=== PATIENT | male | born 1955 | race Caucasian/White ===

== ENCOUNTER 2018-04-01 07:51 | Inpatient (IN) | payer MEDICARE, BC ==
[~2018-04-01] VITALS: Ht 193 cm; Wt 106.5 kg
[~2018-04-01 07:51] MED LIST: ALPR0.25 PO; ANTIDEPRESSANT; DEXL60CA2 PO; FURO-93 PO; GABA300C10 PO; LIDO20VI RC; OMEP-110 PO; OXYC5CAP2 PO; PANT40TA5 PO; POLY17PO5 PO; PROP20TA PO; SPIR100T PO
[2018-04-01] MEDS ORDERED: TOPI25CA5 PO (08:16)
[2018-04-01] MEDS ORDERED: SODIUM CHLORIDE FLUSH 10ML SYR IVF ONE (09:00)
[2018-04-01] MEDS ORDERED: METRONIDAZOLE PMX 500MG/100ML 100 ML IV ONE (09:00)
[2018-04-01] MEDS ORDERED: AMPICILLIN/SULBACTAM 3 GM in SODIUM CHLORIDE 0.9% 100 ML IV ONE (09:00)
[2018-04-01] MEDS ORDERED: ONDANSETRON 2MG/ML, 2ML IVPush ONE (09:00)
[2018-04-01] MEDS ORDERED: ONDANSETRON 2MG/ML, 2ML ONE ×2 (09:07→16:53)
[2018-04-01] MEDS ORDERED: MORPHINE SULFATE 4 MG/ML, 1ML ONE ×2 (09:07→10:16)
[2018-04-01] MEDS ORDERED: METRONIDAZOLE PMX 500MG/100ML 100 ML ONE (09:07)
[2018-04-01] MEDS: MORPHINE SULFATE 4 MG/ML, 1ML IVPush PRN ×3 (09:18→20:37)
[2018-04-01 09:31] LABS: ALBUMIN 3.7 g/dL (3.4-5.0); ANION GAP 10 mmol/L (5-15); CALCIUM 8.1 mg/dL (8.5-10.1); CHLORIDE 109 mmol/L (98-107)
[2018-04-01 09:38] LABS: BASOPHILS # (AUTO) 0.01 x10^3/uL (0-0.1); BASOPHILS % (AUTO) 0 % (0-1); EOSINOPHILS # (AUTO) 0.07 x10^3/uL (0-0.4); EOSINOPHILS % (AUTO) 1 % (1-7); LYMPHOCYTES # (AUTO) 0.89 x10^3/uL (1-3.4); LYMPHOCYTES % (AUTO) 14 % (22-44); MD SCAN; MEAN CORPUSCULAR HEMOGLOBIN 28.9 pg (27.5-34.5); MEAN CORPUSCULAR HGB CONC 33.1 g/dL (33.2-36.2); MEAN CORPUSCULAR VOLUME 87.2 fL (81-97); MEAN PLATELET VOLUME 12.1 fL (7.4-10.4); MONOCYTES # (AUTO) 1.17 x10^3/uL (0.2-0.8); MONOCYTES % (AUTO) 18 % (2-9); NEUTROPHILS # (AUTO) 4.41 x10^3/uL (1.8-6.8); NEUTROPHILS % (AUTO) 67 % (42-75); PLATELET COUNT 91 x10^3/uL (130-400); RED BLOOD COUNT 5.27 x10^6/uL (4.38-5.82); RED CELL DISTRIBUTION WIDTH 16.8 % (9.4-14.8)
[2018-04-01 10:25] LABS: ALANINE AMINOTRANSFERASE 41 U/L (12-78); ALKALINE PHOSPHATASE 161 U/L (45-117); BILIRUBIN,TOTAL 0.8 mg/dL (0.2-1.0); CREATININE 1.04 mg/dL (0.7-1.3); TOTAL PROTEIN 7.8 g/dL (6.4-8.2)
[2018-04-01] MEDS ORDERED: POLYETHYLENE GLYCOL 17 GM PACKET PO PRN (10:30)
[2018-04-01] MEDS ORDERED: BISACODYL 10 MG SUPP PR PRN (10:30)
[2018-04-01] MEDS ORDERED: DOCUSATE 100 MG CAPSULE PO PRN (10:30)
[2018-04-01] MEDS ORDERED: KETOROLAC 30 MG/1 ML IV PRN (10:30)
[2018-04-01] MEDS ORDERED: hydrALAzine 20 MG/ML, 1ML IVPush PRN (10:30)
[2018-04-01] MEDS ORDERED: ONDANSETRON 2MG/ML, 2ML IVPush PRN (10:30)
[2018-04-01] MEDS ORDERED: OMNIPAQUE 350 MG/ML, 100ML BOTTLE ONE (11:10)
[2018-04-01] MEDS: NS + 20MEQ KCL 1,000 ML IV SCH (12:51)
[2018-04-01 12:53] VITALS: BP 144/93
[2018-04-01] MEDS ORDERED: BUPIVACAINE/PF 0.5% ONE (16:00)
[2018-04-01] MEDS ORDERED: EPINEPHRINE 1 MG/ML, 1ML ONE (16:00)
[2018-04-01] MEDS ORDERED: FENTANYL PF 100 MCG/2ML ONE ×2 (16:49→17:51)
[2018-04-01] MEDS ORDERED: MIDAZOLAM 1 MG/ML, 2ML ONE (16:49)
[2018-04-01] MEDS ORDERED: NEOSTIGMINE 1 MG/ML, 10ML ONE (16:53)
[2018-04-01] MEDS ORDERED: CEFAZOLIN 1,000 MG ONE (16:53)
[2018-04-01] MEDS ORDERED: DEXAMETHASONE 4 MG/ML, 1ML ONE (16:53)
[2018-04-01] MEDS ORDERED: SUCCINYLCHOLINE 20 MG/ML, 10ML ONE (16:53)
[2018-04-01] MEDS ORDERED: PROPOFOL 10 MG/ML, 20ML ONE (16:53)
[2018-04-01] MEDS ORDERED: ROCURONIUM 10MG/ML,5ML ONE (16:53)
[2018-04-01] MEDS ORDERED: GLYCOPYRROLATE 0.2MG/1ML, 5ML ONE (16:53)
[2018-04-01] MEDS ORDERED: OXYcodone 5 MG/5 ML ORAL.SOL UDC PO PRN (17:30)
[2018-04-01] MEDS ORDERED: DIAZEPAM 5 MG/ML, 2ML IVPush PRN (17:30)
[2018-04-01] MEDS ORDERED: ONDANSETRON 2MG/ML, 2ML IV PRN (17:30)
[2018-04-01] MEDS ORDERED: ONDANSETRON ODT 8 MG PO PRN (17:30)
[2018-04-01] MEDS ORDERED: MEPERIDINE/PF 25MG/0.5ML IVPush PRN (17:30)
[2018-04-01] MEDS ORDERED: MORPHINE SULFATE 4 MG/ML, 1ML IVPush PRN (17:30)
[2018-04-01] MEDS ORDERED: OXYcodone 5 MG/5 ML ORAL.SOL UDC ONE (17:52)
[2018-04-01] MEDS: FENTANYL PF 100 MCG/2ML IV PRN ×2 (17:54→18:13)
[2018-04-01] MEDS ORDERED: MEPERIDINE/PF 50 MG/ML ONE (17:55)
[2018-04-01] MEDS ORDERED: OMEP40CA6 PO (18:03)
[2018-04-01 18:46] VITALS: BP 120/78
[2018-04-02] MEDS: AMPICILLIN/SULBACTAM 3 GM in SODIUM CHLORIDE 0.9% 100 ML IV SCH ×4 (00:06→23:43)
[2018-04-02] MEDS: MORPHINE SULFATE 4 MG/ML, 1ML IVPush PRN ×5 (00:38→21:15)
[2018-04-02] MEDS: METRONIDAZOLE PMX 500MG/100ML 100 ML IV SCH ×4 (00:38→18:33)
[2018-04-02 01:12] VITALS: BP 109/72
[2018-04-02] MEDS: NS + 20MEQ KCL 1,000 ML IV SCH ×2 (05:45→16:05)
[2018-04-02 06:02] LABS: MEAN CORPUSCULAR HEMOGLOBIN 29.4 pg (27.5-34.5); MEAN CORPUSCULAR HGB CONC 33.4 g/dL (33.2-36.2); MEAN CORPUSCULAR VOLUME 88.2 fL (81-97); MEAN PLATELET VOLUME 11.4 fL (7.4-10.4); PLATELET COUNT 87 x10^3/uL (130-400); RED BLOOD COUNT 4.63 x10^6/uL (4.38-5.82)
[2018-04-02 06:11] LABS: CHLORIDE 111 mmol/L (98-107)
[2018-04-02 06:23] LABS: ANION GAP 10 mmol/L (5-15); CREATININE 0.76 mg/dL (0.7-1.3)
[2018-04-02 06:43] LABS: ANISOCYTOSIS 1+; BASOPHILS # (AUTO) 0.02 x10^3/uL (0-0.1); BASOPHILS % (AUTO) 0 % (0-1); EOSINOPHILS # (AUTO) 0.14 x10^3/uL (0-0.4); EOSINOPHILS % (AUTO) 2 % (1-7); LYMPHOCYTES # (AUTO) 1.07 x10^3/uL (1-3.4); LYMPHOCYTES % (AUTO) 17 % (22-44); MD MORPH REVIEW ONLY; MONOCYTES # (AUTO) 1.08 x10^3/uL (0.2-0.8); MONOCYTES % (AUTO) 17 % (2-9); NEUTROPHILS # (AUTO) 3.95 x10^3/uL (1.8-6.8); NEUTROPHILS % (AUTO) 63 % (42-75); POLYCHROMASIA 1+
[2018-04-02 06:44] LABS: <PLATELET ESTIMATE> DECREASED; LARGE PLATELETS 1+
[2018-04-02 08:12] VITALS: BP 123/87
[2018-04-02] MEDS ORDERED: VANCOMYCIN PER PHARMACY MC PRN (09:00)
[2018-04-02] MEDS ORDERED: TOPIRAMATE 25 MG TABLET PO SCH (09:00)
[2018-04-02] MEDS ORDERED: PHARMACOKINETIC MONITORING MC PRN (09:30)
[2018-04-02] MEDS ORDERED: VANCOMYCIN 1,900 MG in SODIUM CHLORIDE 0.9% 250 ML IV SCH (10:00)
[2018-04-02 12:49] VITALS: BP 121/84
[2018-04-02 19:09] LABS: CLOSTRIDIUM DIFFICILE ANTIGEN NEGATIVE; CLOSTRIDIUM DIFFICILE TOXIN NEGATIVE (Negative)
[2018-04-02 19:13] VITALS: BP 133/78
[2018-04-02] MEDS ORDERED: VANCOMYCIN 2,000 MG in SODIUM CHLORIDE 0.9% 500 ML IV SCH (21:00)
[2018-04-03] MEDS: METRONIDAZOLE PMX 500MG/100ML 100 ML IV SCH ×2 (00:20→05:12)
[2018-04-03] MEDS: NS + 20MEQ KCL 1,000 ML IV SCH (02:00)
[2018-04-03 02:05] VITALS: BP 113/68
[2018-04-03] MEDS: MORPHINE SULFATE 4 MG/ML, 1ML IVPush PRN ×2 (04:03→10:42)
[2018-04-03 05:01] LABS: MEAN CORPUSCULAR HEMOGLOBIN 29.2 pg (27.5-34.5); MEAN CORPUSCULAR HGB CONC 33.4 g/dL (33.2-36.2); MEAN CORPUSCULAR VOLUME 87.6 fL (81-97); RED CELL DISTRIBUTION WIDTH 16.6 % (9.4-14.8)
[2018-04-03 05:13] LABS: ANION GAP 10 mmol/L (5-15); CALCIUM 7.7 mg/dL (8.5-10.1); CHLORIDE 113 mmol/L (98-107); CREATININE 0.66 mg/dL (0.7-1.3)
[2018-04-03 05:20] LABS: BASOPHILS # (AUTO) 0.01 x10^3/uL (0-0.1); BASOPHILS % (AUTO) 0 % (0-1); EOSINOPHILS # (AUTO) 0.13 x10^3/uL (0-0.4); EOSINOPHILS % (AUTO) 4 % (1-7); LYMPHOCYTES # (AUTO) 0.73 x10^3/uL (1-3.4); LYMPHOCYTES % (AUTO) 20 % (22-44); MD SCAN; MEAN PLATELET VOLUME 11.8 fL (7.4-10.4); MONOCYTES # (AUTO) 0.56 x10^3/uL (0.2-0.8); MONOCYTES % (AUTO) 15 % (2-9); NEUTROPHILS # (AUTO) 2.28 x10^3/uL (1.8-6.8); NEUTROPHILS % (AUTO) 62 % (42-75); PLATELET COUNT 73 x10^3/uL (130-400)
[2018-04-03 07:48] VITALS: BP 120/77
[2018-04-03] MEDS: AMPICILLIN/SULBACTAM 3 GM in SODIUM CHLORIDE 0.9% 100 ML IV SCH (08:24)
[2018-04-03] MEDS: CEPHALEXIN 500 MG CAPSULE PO SCH ×2 (10:42→16:28)
[2018-04-03 12:17] VITALS: BP 146/86
[2018-04-03] MEDS ORDERED: MORPHINE SULFATE 4 MG/ML, 1ML IVPush PRN (16:30)
[2018-04-03] MEDS ORDERED: SULF1TAB24 PO (16:50)
[2018-04-03] MEDS ORDERED: HYDR-3652 PO (16:50)
== END 2018-04-03 17:45 | disposition home or self-care (01) | DRG 330 ==
LOC: ED 09:33 → EDIP 10:02 → 4WST 11:35
PROVIDERS: ADMIT Hospitalist; ATTEND Hospitalist
PROC: 0DQP0ZZ Repair Rectum, Open Approach (ICD-10-PCS; 2018-04-01)
PROC: 0D9P0ZZ Drainage of Rectum, Open Approach (ICD-10-PCS; principal; 2018-04-01 17:00)
DX: K60.5 Anorectal fistula (principal); L02.31 Cutaneous abscess of buttock; L03.317 Cellulitis of buttock; D69.6 Thrombocytopenia, unspecified; E87.6 Hypokalemia; Z66 Do not resuscitate; K21.9 Gastro-esophageal reflux disease without esophagitis; K40.90 Unilateral inguinal hernia, without obstruction or gangrene, not specified as recurrent; F41.9 Anxiety disorder, unspecified; Z79.899 Other long term (current) drug therapy
CPT/HCPCS: 36415; 74177; 80048; 80053; 83605; 85025; 87040; 87046; 87070; 87075; 87077; 87186; 87205; 87324; 87427; 89055; 93005; 96365; 96375; 99285; G0378; J0171; J0295; J0690; J1100; J1885; J2175; J2250; J2405; J2704; J2710; J3010; J3370; J3480; J3490; Q9967; J0330; J7040; J7050

== ENCOUNTER → 2018-04-06 | Outpatient (CLI) | payer BC, MEDICARE ==
[~2018-04-06] MED LIST changes: +HYDR-3652 PO; +OMEP40CA6 PO; +SULF1TAB24 PO; +TOPI25CA5 PO
== END | disposition home or self-care (01) ==
LOC: WOUND 12:58
PROVIDERS: ATTEND Family Medicine
DX: T81.31XA Disruption of external operation (surgical) wound, not elsewhere classified, initial encounter (principal); K60.3 Anal fistula; B18.2 Chronic viral hepatitis C; F31.9 Bipolar disorder, unspecified; F41.9 Anxiety disorder, unspecified; K21.9 Gastro-esophageal reflux disease without esophagitis; Y83.8 Other surgical procedures as the cause of abnormal reaction of the patient, or of later complication, without mention of misadventure at the time of the procedure; Y92.89 Other specified places as the place of occurrence of the external cause
CPT/HCPCS: 99215

== ENCOUNTER → 2018-04-13 | Outpatient (CLI) | payer BC, MEDICARE | END | disposition home or self-care (01) | LOC: WOUND 13:05 | PROVIDERS: ATTEND Family Medicine | DX: T81.89XD Other complications of procedures, not elsewhere classified, subsequent encounter (principal); K60.3 Anal fistula; B18.2 Chronic viral hepatitis C; F41.9 Anxiety disorder, unspecified; F31.9 Bipolar disorder, unspecified; K21.9 Gastro-esophageal reflux disease without esophagitis; Z79.899 Other long term (current) drug therapy; Y83.8 Other surgical procedures as the cause of abnormal reaction of the patient, or of later complication, without mention of misadventure at the time of the procedure | CPT/HCPCS: G0463 ==

== ENCOUNTER → 2018-04-27 | Outpatient (CLI) | payer BC, MEDICARE, OTHER | END | disposition home or self-care (01) | LOC: WOUND 10:44 | PROVIDERS: ATTEND Family Medicine | DX: T81.89XD Other complications of procedures, not elsewhere classified, subsequent encounter (principal); K60.3 Anal fistula; B18.2 Chronic viral hepatitis C; F31.9 Bipolar disorder, unspecified; F41.9 Anxiety disorder, unspecified; K21.9 Gastro-esophageal reflux disease without esophagitis; Z79.899 Other long term (current) drug therapy; Y83.8 Other surgical procedures as the cause of abnormal reaction of the patient, or of later complication, without mention of misadventure at the time of the procedure | CPT/HCPCS: 99214 ==

== ENCOUNTER → 2018-05-11 | Outpatient (CLI) | payer BC, MEDICARE | END | disposition home or self-care (01) | LOC: WOUND 08:08 | PROVIDERS: ATTEND Family Medicine | DX: T81.89XD Other complications of procedures, not elsewhere classified, subsequent encounter (principal); S30.813A Abrasion of scrotum and testes, initial encounter; K60.3 Anal fistula; B18.2 Chronic viral hepatitis C; F41.9 Anxiety disorder, unspecified; F31.9 Bipolar disorder, unspecified; K21.9 Gastro-esophageal reflux disease without esophagitis; Z79.899 Other long term (current) drug therapy; Y83.8 Other surgical procedures as the cause of abnormal reaction of the patient, or of later complication, without mention of misadventure at the time of the procedure; X58.XXXA Exposure to other specified factors, initial encounter; Y93.89 Activity, other specified; Y92.89 Other specified places as the place of occurrence of the external cause; Y99.8 Other external cause status | CPT/HCPCS: 99214 ==

== ENCOUNTER → 2018-06-08 | Outpatient (CLI) | payer MEDICARE, BC | END | disposition home or self-care (01) | LOC: WOUND 14:24 | PROVIDERS: ATTEND Family Medicine | DX: S30.813A Abrasion of scrotum and testes, initial encounter (principal); K60.3 Anal fistula; B18.2 Chronic viral hepatitis C; F31.9 Bipolar disorder, unspecified; F41.9 Anxiety disorder, unspecified; K21.9 Gastro-esophageal reflux disease without esophagitis; X58.XXXA Exposure to other specified factors, initial encounter; Y93.89 Activity, other specified; Y92.89 Other specified places as the place of occurrence of the external cause; Y99.8 Other external cause status | CPT/HCPCS: G0463 ==

== ENCOUNTER 2018-06-22 14:00 | Outpatient (CLI) | payer BC, MEDICARE ==
[~2018-06-22 14:00] MED LIST changes: +LIDOCAINE 1%, 20ML ONE
== END 2018-06-22 23:59 | disposition home or self-care (01) ==
LOC: RAD 14:00
PROVIDERS: ATTEND Surgery
DX: C77.0 Secondary and unspecified malignant neoplasm of lymph nodes of head, face and neck (principal)
CPT/HCPCS: 38505; 76942; 88305; 88341; 88342; J3490

== ENCOUNTER → 2018-06-22 | Outpatient (CLI) | payer BC, MEDICARE | END | disposition home or self-care (01) | LOC: WOUND 14:37 | PROVIDERS: ATTEND Family Medicine | DX: S30.813D Abrasion of scrotum and testes, subsequent encounter (principal); K60.3 Anal fistula; B18.2 Chronic viral hepatitis C; F31.9 Bipolar disorder, unspecified; F41.9 Anxiety disorder, unspecified; K21.9 Gastro-esophageal reflux disease without esophagitis; Z86.19 Personal history of other infectious and parasitic diseases; X58.XXXD Exposure to other specified factors, subsequent encounter | CPT/HCPCS: 99213 ==

== ENCOUNTER 2018-06-29 13:17 | Outpatient (CLI) | payer BC, MEDICARE ==
[~2018-06-29 13:17] MED LIST changes: -LIDOCAINE 1%, 20ML ONE
== END 2018-06-29 23:59 | disposition home or self-care (01) ==
LOC: WOUND 13:17
PROVIDERS: ATTEND Family Medicine
DX: S30.813D Abrasion of scrotum and testes, subsequent encounter (principal); K60.3 Anal fistula; B18.2 Chronic viral hepatitis C; F31.9 Bipolar disorder, unspecified; F41.9 Anxiety disorder, unspecified; K21.9 Gastro-esophageal reflux disease without esophagitis; X58.XXXD Exposure to other specified factors, subsequent encounter
CPT/HCPCS: 99213

== ENCOUNTER → 2018-07-06 | Outpatient (CLI) | payer BC, MEDICARE | END | disposition home or self-care (01) | LOC: WOUND 08:21 | PROVIDERS: ATTEND Family Medicine | DX: S30.813D Abrasion of scrotum and testes, subsequent encounter (principal); K60.3 Anal fistula; B18.2 Chronic viral hepatitis C; F31.9 Bipolar disorder, unspecified; F41.9 Anxiety disorder, unspecified; K21.9 Gastro-esophageal reflux disease without esophagitis; X58.XXXD Exposure to other specified factors, subsequent encounter | CPT/HCPCS: G0463 ==

== ENCOUNTER → 2018-07-18 | Outpatient (CLI) | payer BC, MEDICARE ==
[~2018-07-18] MED LIST changes: +OMNIPAQUE 350 MG/ML, 100ML BOTTLE ONE
== END | disposition home or self-care (01) ==
LOC: CFH 11:41
PROVIDERS: ATTEND Surgery
DX: C79.9 Secondary malignant neoplasm of unspecified site (principal); K74.60 Unspecified cirrhosis of liver; K40.90 Unilateral inguinal hernia, without obstruction or gangrene, not specified as recurrent; M51.36 Other intervertebral disc degeneration, lumbar region; R22.1 Localized swelling, mass and lump, neck; R16.1 Splenomegaly, not elsewhere classified; Z18.89 Other specified retained foreign body fragments
CPT/HCPCS: 71260; 74177; Q9967

== ENCOUNTER 2018-07-20 08:00 | Outpatient (CLI) | payer BC, MEDICARE ==
[~2018-07-20 08:00] MED LIST changes: -OMNIPAQUE 350 MG/ML, 100ML BOTTLE ONE
== END 2018-07-20 23:59 | disposition home or self-care (01) ==
LOC: WOUND 08:00
PROVIDERS: ATTEND Family Medicine
DX: S30.813D Abrasion of scrotum and testes, subsequent encounter (principal); K60.3 Anal fistula; B18.2 Chronic viral hepatitis C; F31.9 Bipolar disorder, unspecified; F41.9 Anxiety disorder, unspecified; K21.9 Gastro-esophageal reflux disease without esophagitis; X58.XXXD Exposure to other specified factors, subsequent encounter
CPT/HCPCS: G0463

== ENCOUNTER → 2018-08-03 | Outpatient (CLI) | payer BC, MEDICARE | END | disposition home or self-care (01) | LOC: WOUND 08:07 | PROVIDERS: ATTEND Family Medicine | DX: S30.813D Abrasion of scrotum and testes, subsequent encounter (principal); B18.2 Chronic viral hepatitis C; F31.9 Bipolar disorder, unspecified; F41.9 Anxiety disorder, unspecified; K21.9 Gastro-esophageal reflux disease without esophagitis; X58.XXXD Exposure to other specified factors, subsequent encounter | CPT/HCPCS: 99214 ==

== ENCOUNTER → 2018-08-09 | Outpatient (CLI) | payer BC, MEDICARE | END | disposition home or self-care (01) | LOC: PETCFH 07:31 | PROVIDERS: ATTEND Internal Medicine Hematology & Oncology | DX: K74.60 Unspecified cirrhosis of liver (principal); R59.1 Generalized enlarged lymph nodes; R16.1 Splenomegaly, not elsewhere classified | CPT/HCPCS: 78815; A9552 ==

== ENCOUNTER 2018-08-24 08:00 | Outpatient (CLI) | payer BC, MEDICARE | END 2018-08-24 23:59 | disposition home or self-care (01) | LOC: WOUND 08:00 | PROVIDERS: ATTEND Family Medicine | DX: K60.3 Anal fistula (principal); S30.813D Abrasion of scrotum and testes, subsequent encounter; B18.2 Chronic viral hepatitis C; F31.9 Bipolar disorder, unspecified; F41.9 Anxiety disorder, unspecified; K21.9 Gastro-esophageal reflux disease without esophagitis; X58.XXXD Exposure to other specified factors, subsequent encounter | CPT/HCPCS: 99214 ==

== ENCOUNTER → 2019-03-25 | Outpatient (CLI) | payer BC, MEDICARE ==
[~2019-03-25] MED LIST changes: +OMEP40CA42 PO; -OMEP40CA6 PO; +OMNIPAQUE 350 MG/ML, 100ML BOTTLE ONE
== END | disposition home or self-care (01) ==
LOC: CFH 09:23
PROVIDERS: ATTEND Internal Medicine Hematology & Oncology
DX: C16.9 Malignant neoplasm of stomach, unspecified (principal); R59.0 Localized enlarged lymph nodes; R16.0 Hepatomegaly, not elsewhere classified
CPT/HCPCS: 70491; 71260; 74177; Q9967

== ENCOUNTER → 2019-06-24 | Outpatient (CLI) | payer MEDICARE ==
[~2019-06-24] MED LIST changes: -OMNIPAQUE 350 MG/ML, 100ML BOTTLE ONE; +OMNIPAQUE 350 MG/ML, 150 ML BOTTLE ONE
== END | disposition home or self-care (01) ==
LOC: RAD 11:08
PROVIDERS: ATTEND Internal Medicine Hematology & Oncology
DX: C16.9 Malignant neoplasm of stomach, unspecified (principal); R59.0 Localized enlarged lymph nodes; M47.812 Spondylosis without myelopathy or radiculopathy, cervical region; R16.1 Splenomegaly, not elsewhere classified
CPT/HCPCS: 70491; 71260; 74177; Q9967